=== PATIENT | female | born 2000 | race Caucasian/White ===

== ENCOUNTER 2023-05-03 19:58 | Emergency (ER) | payer SELFPAY ==
[~2023-05-03] VITALS: Ht 167.6 cm; Wt 154.5 kg
[~2023-05-03 19:58] MED LIST: ZOFRAN ODT4 MG PO
[2023-05-03 20:05] VITALS: BP 152/90; TEMP 98
[2023-05-03] MEDS ORDERED: ZITHROMAX Z PA250 MG PO (21:38)
[2023-05-03 22:17] VITALS: PULSE 98
== END 2023-05-03 22:17 | disposition home or self-care (01) ==
LOC: COL.ER 19:58
DX: J02.0 Streptococcal pharyngitis (principal); E66.01 Morbid (severe) obesity due to excess calories; Z91.040 Latex allergy status; Z88.1 Allergy status to other antibiotic agents; Z68.43 Body mass index [BMI] 50.0-59.9, adult